=== PATIENT | female | born 1995 | race Two or more races ===

== ENCOUNTER 2023-06-01 04:20 | Emergency (ER) | payer SELFPAY ==
[~2023-06-01] VITALS: Ht 170.2 cm; Wt 64.9 kg
[2023-06-01 05:20] VITALS: BP 120/95; TEMP 98.1; O2SAT 100
[2023-06-01] MEDS ORDERED: LORAZEPAM 1 MG TABLET ONE (05:27)
[2023-06-01] MEDS: LORAZEPAM 1 MG TABLET PO ONE (05:27)
[2023-06-01 06:24] LABS: APPEARANCE,URINE SLIGHTLY CLOUDY (CLEAR); BILIRUBIN,URINE NEGATIVE (NEGATIVE); BLOOD, URINE TRACE-INTA Ery/uL (NEGATIVE); COLOR,URINE YELLOW (YELLOW); KETONES,URINE 3+ mg/dL (NEGATIVE); LEUKOCYTE ESTERASE ,URINE TRACE (NEGATIVE); NITRITE, URINE NEGATIVE (NEGATIVE); PROTEIN,URINE NEGATIVE (NEGATIVE); UGLUCOSE NEGATIVE (NEGATIVE); UROBILINOGEN,URINE 0.2 EU/dL (0.2)
[2023-06-01 06:30] LABS: ADD URINE CULTURE NO; BACTERIA,URINE 1+ /HPF (None Seen); RBC,URINE 0-2 /HPF (0-2); YEAST,URINE None Seen /HPF (None Seen)
[2023-06-01 06:31] LABS: PREGNANCY TEST URINE QUAL NEGATIVE (NEGATIVE); TRICHOMONAS,URINE None Seen /HPF (None Seen)
[2023-06-01] MEDS ORDERED: NITR100C6 PO (06:45)
== END 2023-06-01 07:13 | disposition home or self-care (01) ==
LOC: ER 04:33
DX: F41.9 Anxiety disorder, unspecified (principal); R10.2 Pelvic and perineal pain
CPT/HCPCS: 81001; 84703-TC

== ENCOUNTER 2023-06-03 14:38 | Emergency (ER) | payer OTHER ==
[~2023-06-03] VITALS: Ht 170.2 cm; Wt 69.9 kg
[~2023-06-03 14:38] MED LIST: NITR100C6 PO
[2023-06-03 15:30] LABS: BASOPHILS # (AUTO) 0.1 K/uL (0.0-0.2); BASOPHILS % (AUTO) 1.3 % (0.0-2.0); EOSINOPHILS # (AUTO) 0.1 K/uL (0.0-0.7); HEMATOCRIT 43 % (33-45); HEMOGLOBIN 14.6 g/dL (11.5-14.8); LYMPHOCYTES # (AUTO) 1.7 K/uL (0.8-4.8); LYMPHOCYTES % (AUTO) 32.8 % (20.0-44.0); MEAN CORPUSCULAR HEMOGLOBIN 30 PG (26.0-33.0); MEAN CORPUSCULAR HGB CONC 34 g/dl (31.0-36.0); MEAN CORPUSCULAR VOLUME 88 fL (82-100); MONOCYTES # (AUTO) 0.4 K/uL (0.1-1.30); MONOCYTES % (AUTO) 8.4 % (2.0-12.0); NEUTROPHILS % (AUTO) 56.5 % (43.0-81.0); PLATELET COUNT (AUTO) 298 K/uL (150-450); RED BLOOD CELL COUNT(AUTO) 4.88 MIL/uL (4.0-5.2); WHITE BLOOD COUNT (AUTO) 5.2 K/uL (4.3-11.0)
[2023-06-03] MEDS: IV NS 0.9% 1,000 ML BAG IV ONE (15:38)
[2023-06-03] MEDS ORDERED: IBUPROFEN 600 MG TABLET ONE (15:40)
[2023-06-03] MEDS ORDERED: ONDANSETRON HCL/PF 4 MG/2 ML VIAL ONE (15:40)
[2023-06-03 15:43] LABS: CALCIUM, SERUM 8.6 mg/dL (8.5-10.1); CREATININE 0.8 mg/dL (0.6-1.3); POTASSIUM 3.6 mmol/L (3.5-5.1)
[2023-06-03] MEDS: ONDANSETRON HCL/PF 4 MG/2 ML VIAL IVP ONE (15:44)
[2023-06-03] MEDS: IBUPROFEN 600 MG TABLET PO ONE (15:45)
[2023-06-03 16:27] LABS: APPEARANCE,URINE Clear (CLEAR); BILIRUBIN,URINE Negative (NEGATIVE); BLOOD, URINE Negative Ery/uL (NEGATIVE); COLOR,URINE YELLOW (YELLOW); KETONES,URINE >=160 mg/dL (NEGATIVE); LEUKOCYTE ESTERASE ,URINE Negative (NEGATIVE); NITRITE, URINE Negative (NEGATIVE); PH,URINE 5.5 (5.0-8.0); PROTEIN,URINE Negative (NEGATIVE); UGLUCOSE Negative (NEGATIVE); UROBILINOGEN,URINE 0.2 EU/dL (0.2)
[2023-06-03 16:30] LABS: PREGNANCY TEST URINE QUAL NEGATIVE (NEGATIVE)
[2023-06-03 16:38] LABS: ADD URINE CULTURE NO; BACTERIA,URINE Rare /HPF (None Seen); RBC,URINE NONE SEEN /HPF (0-2); SQUAMOUS EPITHELIAL CELL,UR Few /HPF (None Seen); WBC,URINE 0-2 /HPF (0-3)
[2023-06-03] MEDS ORDERED: ONDA4TAB11 PO (17:10)
[2023-06-03 17:26] VITALS: BP 118/86; TEMP 98.5; O2SAT 97
== END 2023-06-03 17:27 | disposition home or self-care (01) ==
LOC: ER 14:38
DX: M54.6 Pain in thoracic spine (principal); R11.0 Nausea; F41.9 Anxiety disorder, unspecified
CPT/HCPCS: 99283; 96374; 96361; 85025; 80048; 83690; 84703; 81001; 36415; J2405; J7030